=== PATIENT | male | born 2005 | race Caucasian/White ===

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

== ENCOUNTER 2024-09-14 12:55 | Emergency (ER) | payer OTHER, SELFPAY ==
[2024-09-14 13:14] VITALS: BP 145/91; PULSE 88; RESP 14; TEMP 37.1; O2SAT 98; BMI 26.4
--- NOTE | 2024-09-14 13:17 | DI.RAD.S_ITS ---
PROCEDURE: XR CHEST 1V INDICATIONS: chest pain TECHNIQUE: One view of the chest was acquired. COMPARISON: None. FINDINGS: Surgical changes and devices: None. Lungs and pleura: Lungs are clear. No pleural effusions or pneumothorax. Mediastinum: Mediastinal contours appear normal. Heart size is normal. Bones and chest wall: No suspicious bony lesions. Overlying soft tissues appear unremarkable. IMPRESSION: No acute cardiopulmonary abnormality is seen. Dictated by: Tomás Navarrete M.D. on 09/14/2024 at 14:05 Approved by: Tomás Navarrete M.D. on 09/14/2024 at 14:05
--- NOTE | 2024-09-14 13:17 | EKG_ITS ---
[address] [address] Test Date: 2024-09-14 Pat Name: Sanjay Jameson Department: Room: Gender: Male [employer] Worker: EDUARDO : 2005 Requested By: Order Number: [id number] Reading MD: Rui Howard MD Measurements Intervals [place] Rate: 67 P: 41 OR: 142 QRS: 56 QRSD: 106 T: 54 QT: 382 QTc: 403 Interpretive Statements Normal sinus rhythm with sinus arrhythmia Electronically Signed On 09-15-2024 7:36:50 PST by Rui Howard MD
[2024-09-14 13:42] LABS: Add Manual Diff / Slide Review NO; Basophils Absolute Auto 100 /uL (0-100); Basophils Percent Auto 0.6 % (0-2); Eosinophils Absolute Auto 0 /uL (0-450); Hematocrit 44.2 % (41-53); Hemoglobin 15.7 g/dL (13.5-17.5); Lymphocytes Absolute Auto 1400 /uL (1100-4500); Lymphocytes Percent Auto 15.7 % (25-40); Mean Corpuscular HGB Conc 35.5 % (30-36); Mean Corpuscular Hemoglobin 34.7 PG (26-34); Mean Corpuscular Volume 97.5 fL (80-100); Monocytes Absolute Auto 400 /uL (0-900); Monocytes Percent Auto 4.1 % (3-14); Neutrophils Absolute Auto 7100 /uL (1500-7000); Neutrophils Percent Auto 79.6 % (50-75); Platelet Count 220 X10^3/uL (150-400); Red Blood Cell Count 4.53 X10^6/uL (4.5-5.9); Red Cell Distribution Width 12.1 % (11.6-14.8); White Blood Cell Count 8.9 X10^3/uL (4.5-11.0)
[2024-09-14 13:50] LABS: INR 1.2 (0.9-1.3); Prothrombin Time 13.7 SECONDS (9.4-12.5)
[2024-09-14 13:52] LABS: PTT Partial Thromboplastin Tim 31 SECONDS (25.1-36.5)
[2024-09-14 13:55] LABS: Alanine Aminotransferase 27 IU/L (<50); Albumin 5.5 g/dL (3.5-5.0); Albumin Globulin Ratio 1.6 (1.0-2.8); Alkaline Phosphatase 53 U/L (38-126); Aspartate Aminotransferase 30 IU/L (17-59); BUN Creatinine Ratio 10.9 (6-22); Bilirubin Total 1.2 mg/dL (0.2-1.3); Blood Urea Nitrogen 12 mg/dL (9-20); Calcium 10.1 mg/dL (8.4-10.2); Carbon Dioxide 23 mmol/L (22-32); Chloride 103 mmol/L (98-107); Creatine Kinase 80 U/L (55-170); Estimated Glomerular Filt Rate > 60 mL/min (>60); Globulin 3.4 g/dL (1.7-4.1); Glucose 112 mg/dL (70-100); HEMOLYSIS < 15 (0-50); Lipase 71 U/L (23-300); Magnesium 1.7 mg/dL (1.6-2.3); Potassium 3.6 mmol/L (3.4-5.1); Sodium 141 mmol/L (137-145); Total Protein 8.9 g/dL (6.3-8.2)
[2024-09-14 14:06] LABS: NT-proBNP (BNP-Adult 18+) < 20 pg/mL (<125); Troponin I < 0.012 ng/mL (0.01-0.034)
--- NOTE | 2024-09-14 16:08 | ED_ITS ---
HPI - Chest Pain <Jeny Roberst PA-C - Last Filed: 09/14/24 20:24> General Chief Complaint: Chest Pain Stated Complaint: chest pain, nausea, vomitting, fatigued, chills Time Seen by Provider: 09/14/24 16:02 Source: patient Mode of arrival: Ambulatory History of Present Illness HPI narrative: Mr. Edwin Jameson is a pleasant 19-year-old male with a past medical history of appendectomy who presents to the emergency department for abdominal pain, nausea, vomiting, diarrhea, chest pain x 6 days. Patient states he has a history of lactose intolerance and his symptoms 1st started after eating ice cream last Thursday with 3 days of significant persistent diarrhea. States that the diarrhea improved however he then started having epigastric abdominal pain, acid reflux, chest palpitations and has since had decreased appetite and barely ate for the last 2 days due to nausea. Reports that he went to a urgent care and was prescribed medication for acid reflux but has not taken this yet. Also reports that he typically uses Zyn nicotine patches but he stopped using them on Thursday due to his symptoms. He continues to have persistent heart palpitations, umbilical abdominal pain, nausea. Diarrhea has decreased. No fevers but he does have chills. Denies sore throat, shortness of breath, cough, hemoptysis, hormone use, history of blood clot, lower leg pain or swelling. His mother and girlfriend contributes to the history. Related Data Home Medications Medication Instructions Recorded Confirmed multivitamin with minerals-folic tab PO 04/24/21 04/24/21 acid 200 mcg chewable tablet Previous Rx's Medication Instructions Recorded ondansetron 4 mg disintegrating 4 mg PO Q8H PRN nausea and 09/14/24 tablet vomiting #20 tabs Allergies Allergy/AdvReac Type Severity Reaction Status Date / Time No Known Drug Allergies Allergy Verified 09/14/24 13:14 Review of Systems <Jeny Roberts PA-C - Last Filed: 09/14/24 20:24> Review of Systems ROS Unobtainable: All systems reviewed & are unremarkable except as noted in HPI and below Patient History <Jeny Roberts PA-C - Last Filed: 09/14/24 20:24> Medical History Varicose veins of right lower extremity with pain No significant medical problems Surgical History Anesthesia History of appendectomy (~05/2014) Family History Grandfather Hypertension Hyperlipidemia Grandmother Cancer Social History Smoking Status: Never smoker Smoking Status: Never smoker Exam <Jeny Roberts PA-C - Last Filed: 09/14/24 20:24> Narrative Exam Narrative: GENERAL: 19 year old patient appears stated age. Well-developed patient, in no acute distress. HEAD: Atraumatic. Normocephalic. NECK: Trachea midline. Cervical ROM intact. CARDIOVASCULAR: Regular rate and rhythm. RESPIRATORY: ?Nonlabored respirations. ?Speaking in clear, full sentences. ?Clear to auscultation. Breath sounds equal bilaterally. No wheezes, rales, or rhonchi. ? GASTROINTESTINAL: Abdomen soft, nondistended, normal bowel sounds. Slight subjective pain to palpation of periumbilical region with no obvious hernia or abnormality. No rebound or guarding. NEURO: AOx3. ?Clear speech. ?Moves all 4 extremities appropriately. SKIN: No rash or erythema of visible areas Initial Vital Signs Initial Vital Signs: Vital Signs Temperature 98.7 F 09/14/24 13:14 Pulse Rate 88 09/14/24 13:14 Respiratory Rate 14 09/14/24 13:14 Blood Pressure 145/91 H 09/14/24 13:14 Pulse Oximetry 98 09/14/24 13:14 Oxygen Delivery Method Room Air 09/14/24 13:14 <Werner Red MD - Last Filed: 09/16/24 12:45> Initial Vital Signs Initial Vital Signs: Vital Signs Temperature 98.7 F 09/14/24 13:14 Pulse Rate 88 09/14/24 13:14 Respiratory Rate 14 09/14/24 13:14 Blood Pressure 145/91 H 09/14/24 13:14 Pulse Oximetry 98 09/14/24 13:14 Oxygen Delivery Method Room Air 09/14/24 13:14 Scores <Jeny Roberts PA-C - Last Filed: 09/14/24 20:24> HEART Score Heart Score history: Slightly Suspicious Heart Score EKG: Normal Heart Score Age: < 45 years old Heart Score risk factors: 1-2 risk factors Heart Score troponin: < or = to normal limit Heart Score Total: 1 PERC Score Age greater than or equal to 50 years: No Heart rate greater than or equal to 100 bpm: No Room Air O2 Sat less than 95%: No Unilateral leg swelling: No Recent trauma or surgery: No Hemoptysis: No Prior PE or DVT: No Hormone Use: No Total PERC Score: 0 <Werner Red MD - Last Filed: 09/16/24 12:45> HEART Score Heart Score Total: 1 PERC Score Total PERC Score: 0 Course <Jeny Roberts PA-C - Last Filed: 09/14/24 20:24> Orders Ordered: Discontinued Medications Sodium Chloride (Normal Saline 0.9%) 1,000 mls @ 1,000 mls/hr IV BOLUS ONE Stop: 09/14/24 17:30 Last Infusion: 09/14/24 18:02 Dose: Infused Documented By: Admin: 09/14/24 17:05 Dose: 1,000 mls/hr Documented By: RB Ondansetron HCl (Ondansetron 4 Mg/2 Ml Inj) 4 mg IV NOW ONE Stop: 09/14/24 16:32 Last Admin: 09/14/24 17:06 Dose: 4 mg Documented By: RB Pantoprazole Sodium (Pantoprazole 40 Mg Vial) 40 mg IV NOW ONE Stop: 09/14/24 16:32 Last Admin: 09/14/24 17:06 Dose: 40 mg Documented By: RB Vital Signs Vital signs: Vital Signs - 8 hr 09/14/24 13:14 09/14/24 17:43 09/14/24 19:22 Temperature 98.7 F Pulse Rate 88 79 78 Respiratory Rate 14 18 18 Blood Pressure 145/91 H 141/81 H 142/62 H Pulse Oximetry 98 98 99 Oxygen Delivery Method Room Air Room Air Room Air <Werner Red MD - Last Filed: 09/16/24 12:45> Orders Ordered: Discontinued Medications Sodium Chloride (Normal Saline 0.9%) 1,000 mls @ 1,000 mls/hr IV BOLUS ONE Stop: 09/14/24 17:30 Last Infusion: 09/14/24 18:02 Dose: Infused Documented By: Admin: 09/14/24 17:05 Dose: 1,000 mls/hr Documented By: RB Ondansetron HCl (Ondansetron 4 Mg/2 Ml Inj) 4 mg IV NOW ONE Stop: 09/14/24 16:32 Last Admin: 09/14/24 17:06 Dose: 4 mg Documented By: RB Pantoprazole Sodium (Pantoprazole 40 Mg Vial) 40 mg IV NOW ONE Stop: 09/14/24 16:32 Last Admin: 09/14/24 17:06 Dose: 40 mg Documented By: RB Vital Signs Vital signs: Vital Signs - 8 hr 09/14/24 13:14 09/14/24 17:43 09/14/24 19:22 Temperature 98.7 F Pulse Rate 88 79 78 Respiratory Rate 14 18 18 Blood Pressure 145/91 H 141/81 H 142/62 H Pulse Oximetry 98 98 99 Oxygen Delivery Method Room Air Room Air Room Air MDM - Chest Pain <Jeny Roberts PA-C - Last Filed: 09/14/24 20:24> Medical Records Data Attestation: I reviewed the patient's medical records. Medical records narrative: prior varicose veins Lab Data 09/14/24 13:20 09/14/24 13:20 Labs: Lab Results 09/14/24 09/14/24 09/14/24 Range/Units 13:20 16:54 17:10 WBC 8.9 (4.5-11.0) X10^3/uL RBC 4.53 (4.5-5.9) X10^6/uL Hgb 15.7 (13.5-17.5) g/dL Hct 44.2 (41-53) % MCV 97.5 (80-100) fL MCH 34.7 H (26-34) PG MCHC 35.5 (30-36) % RDW 12.1 (11.6-14.8) % Plt Count 220 (150-400) X10^3/uL Neut % (Auto) 79.6 H (50-75) % Lymph % (Auto) 15.7 L (25-40) % [place] % (Auto) 4.1 (3-14) % Eos % (Auto) 0.0 L (2-4) % Baso % (Auto) 0.6 (0-2) % Neut # (Auto) 7100 H (3221-4965) /uL Lymph # (Auto) 1400 (2063-9172) /uL [place] # (Auto) 400 (0-900) /uL Eos # (Auto) 0 (0-450) /uL Baso # (Auto) 100 (0-100) /uL PT 13.7 H (9.4-12.5) SECONDS INR 1.2 (0.9-1.3) APTT 31 (25.1-36.5) SECONDS Sodium 141 (137-145) mmol/L Potassium 3.6 (3.4-5.1) mmol/L Chloride 103 (98-107) mmol/L Carbon Dioxide 23 (22-32) mmol/L BUN 12 (9-20) mg/dL Creatinine 1.10 (0.66-1.25) mg/dL Estimated GFR > 60 (>60) mL/min BUN/Creatinine Ratio 10.9 (6-22) Glucose 112 H (70-100) mg/dL Calcium 10.1 (8.4-10.2) mg/dL Magnesium 1.7 (1.6-2.3) mg/dL Total Bilirubin 1.2 (0.2-1.3) mg/dL AST 30 (17-59) IU/L ALT 27 (<50) IU/L Alkaline Phosphatase 53 (38-126) U/L Total Creatine Kinase 80 (55-170) U/L Troponin I < 0.012 < 0.012 (0.01-0.034) ng/mL NT-Pro-B Natriuret Pep < 20 (<125) pg/mL Total Protein 8.9 H (6.3-8.2) g/dL Albumin 5.5 H (3.5-5.0) g/dL Globulin 3.4 (1.7-4.1) g/dL Albumin/Globulin Ratio 1.6 (1.0-2.8) Lipase 71 (23-300) U/L SARS-CoV-2 (PCR) Negative (Negative) Influenza A (RT-PCR) Flu a negative (NEGATIVE) Influenza B (RT-PCR) Flu b negative (NEGATIVE) RSV (PCR) Negative (Negative) Urine Dip Bedside Urine Glucose Negative Bedside Urine Bilirubin - Negative Bedside Urine Ketone +/- 5 Urine Specific [place] 1.005 Bedside Urine Occult Blood - Negative Bedside Urine pH 7.5 Bedside Urine Protein - Negative Bedside Urine Urobilinogen - Negative Bedside Urine Nitrite - Negative Bedside Urine Leukocytes - Negative Esterase Imaging Data Chest x-ray: Radiologist's Impression: PROCEDURE: CT ABDOMEN PELVIS W CON INDICATIONS: N/V/D/umbilical abd pain; chest pain; hx appendectomy TECHNIQUE: After the administration of intravenous contrast, axial sections acquired from the lung bases to the pubic symphysis. Coronal and sagittal reformats were performed. For radiation dose reduction, the following was used: automated exposure control, adjustment of mA and/or kV according to patient size. COMPARISON: [facility], CT, ABDOMEN/PELVIS WITH CONTRAST, 06/10/2014, 19:15. FINDINGS: Image quality: Diagnostic. Lower Chest: No significant findings. ABDOMEN: Liver: No solid mass. Gallbladder: No wall thickening or calcified stones. Biliary ducts: No biliary dilation. Pancreas: Normal size and morphology without visible ductal dilatation or inflammation. Spleen: Size is within normal limits. Adrenal Glands: No adrenal nodules. Kidneys and Ureters: Symmetric enhancement. No nephrolithiasis or hydronephrosis. No hydroureter. Stomach and Bowel: Surgically absent appendix. Proximal stomach contains ingested material. The distal stomach and small bowel loops are fairly decompressed. Partially decompressed loops of colon. No suspicious colon wall thickening or pericolonic inflammation. Peritoneum: No abnormal intraperitoneal fluid. No free air. Ventral Wall: Tiny fat containing umbilical hernia. Abdominal Nodes: No retroperitoneal or mesenteric adenopathy by size criteria. Vessels: The abdominal aorta, IVC, and portal vein are of normal caliber. PELVIS: Pelvic Organs: Unremarkable. Bladder: Decompressed. No stones. Pelvic Nodes: No enlarged lymph nodes. Miscellaneous: No inguinal hernias are seen. Bones: No aggressive osseous abnormality. IMPRESSION: No CT evidence of acute process. Status post appendectomy. CT scan - abdomen/pelvis: Radiologist's Impression: PROCEDURE: CT ABDOMEN PELVIS W CON INDICATIONS: N/V/D/umbilical abd pain; chest pain; hx appendectomy TECHNIQUE: After the administration of intravenous contrast, axial sections acquired from the lung bases to the pubic symphysis. Coronal and sagittal reformats were performed. For radiation dose reduction, the following was used: automated exposure control, adjustment of mA and/or kV according to patient size. COMPARISON: [facility], CT, ABDOMEN/PELVIS WITH CONTRAST, 06/10/2014, 19:15. FINDINGS: Image quality: Diagnostic. Lower Chest: No significant findings. ABDOMEN: Liver: No solid mass. Gallbladder: No wall thickening or calcified stones. Biliary ducts: No biliary dilation. Pancreas: Normal size and morphology without visible ductal dilatation or inflammation. Spleen: Size is within normal limits. Adrenal Glands: No adrenal nodules. Kidneys and Ureters: Symmetric enhancement. No nephrolithiasis or hydronephrosis. No hydroureter. Stomach and Bowel: Surgically absent appendix. Proximal stomach contains ingested material. The distal stomach and small bowel loops are fairly decompressed. Partially decompressed loops of colon. No suspicious colon wall thickening or pericolonic inflammation. Peritoneum: No abnormal intraperitoneal fluid. No free air. Ventral Wall: Tiny fat containing umbilical hernia. Abdominal Nodes: No retroperitoneal or mesenteric adenopathy by size criteria. Vessels: The abdominal aorta, IVC, and portal vein are of normal caliber. PELVIS: Pelvic Organs: Unremarkable. Bladder: Decompressed. No stones. Pelvic Nodes: No enlarged lymph nodes. Miscellaneous: No inguinal hernias are seen. Bones: No aggressive osseous abnormality. IMPRESSION: No CT evidence of acute process. Status post appendectomy. ECG Data Interpretation: ECG reveals rate of 67, normal sinus rhythm, QTC of 403. MDM Narrative Medical decision making narrative: 19-year-old male with a past medical history of appendectomy who presents to the emergency department for abdominal pain, nausea, vomiting, diarrhea, chest pain x 6 days. Differential diagnosis includes but is not limited to ACS/FL, acid reflux, gastritis, colitis, viral syndrome, gastroenteritis, cholecystitis, pancreatitis, etc. On exam patient is in no acute distress, nontoxic appearing, vital signs appropriate. He has been having multiple symptoms relating to the GI system but also chest pain. Physical exam is overall benign with mild subjective periumbilical tenderness but no rebound or guarding. ECG, labs, chest xr were obtained in triage. After shared decision-making with the patient and his mother, we will proceed with viral swab, GI panel, CT abdomen and pelvis with IV contrast, IV fluids Zofran and Protonix. Labs revealed negative troponin x2. Negative BNP. Normal WBC count 8.9. Normal electrolytes, normal renal function, glucose 112. Total protein and albumin very slightly elevated. Normal lipase 71. Negative viral swab. CT abdomen and pelvis reveals no acute process, does have a tiny fat containing umbilical hernia. Patient feeling much better after ED treatment. Suspect his symptoms are combination of gastroenteritis, acid reflux. GI panel still pending however agreed to discharge patient and will call him tomorrow if panel positive for any pathogens. Patient was previously prescribed famotidine and omeprazole which I recommend he start taking and I will also send him Zofran if needed for nausea. Discussed strict ED return precautions, follow up with PCP. Patient verbalized understanding of all information agreeable with the plan. He is tolerating p.o.. He is stable for discharge home. 8:24pm update: called lab, they do not have gi panel, attempted to contact patient to make him aware however no answer and no voicemail box. <Werner Red MD - Last Filed: 09/16/24 12:45> Lab Data Labs: Lab Results 09/14/24 09/14/24 09/14/24 Range/Units 13:20 16:54 17:10 WBC 8.9 (4.5-11.0) X10^3/uL RBC 4.53 (4.5-5.9) X10^6/uL Hgb 15.7 (13.5-17.5) g/dL Hct 44.2 (41-53) % MCV 97.5 (80-100) fL MCH 34.7 H (26-34) PG MCHC 35.5 (30-36) % RDW 12.1 (11.6-14.8) % Plt Count 220 (150-400) X10^3/uL Neut % (Auto) 79.6 H (50-75) % Lymph % (Auto) 15.7 L (25-40) % [place] % (Auto) 4.1 (3-14) % Eos % (Auto) 0.0 L (2-4) % Baso % (Auto) 0.6 (0-2) % Neut # (Auto) 7100 H (5091-0857) /uL Lymph # (Auto) 1400 (0787-4078) /uL [place] # (Auto) 400 (0-900) /uL Eos # (Auto) 0 (0-450) /uL Baso # (Auto) 100 (0-100) /uL PT 13.7 H (9.4-12.5) SECONDS INR 1.2 (0.9-1.3) APTT 31 (25.1-36.5) SECONDS Sodium 141 (137-145) mmol/L Potassium 3.6 (3.4-5.1) mmol/L Chloride 103 (98-107) mmol/L Carbon Dioxide 23 (22-32) mmol/L BUN 12 (9-20) mg/dL Creatinine 1.10 (0.66-1.25) mg/dL Estimated GFR > 60 (>60) mL/min BUN/Creatinine Ratio 10.9 (6-22) Glucose 112 H (70-100) mg/dL Calcium 10.1 (8.4-10.2) mg/dL Magnesium 1.7 (1.6-2.3) mg/dL Total Bilirubin 1.2 (0.2-1.3) mg/dL AST 30 (17-59) IU/L ALT 27 (<50) IU/L Alkaline Phosphatase 53 (38-126) U/L Total Creatine Kinase 80 (55-170) U/L Troponin I < 0.012 < 0.012 (0.01-0.034) ng/mL NT-Pro-B Natriuret Pep < 20 (<125) pg/mL Total Protein 8.9 H (6.3-8.2) g/dL Albumin 5.5 H (3.5-5.0) g/dL Globulin 3.4 (1.7-4.1) g/dL Albumin/Globulin Ratio 1.6 (1.0-2.8) Lipase 71 (23-300) U/L SARS-CoV-2 (PCR) Negative (Negative) Influenza A (RT-PCR) Flu a negative (NEGATIVE) Influenza B (RT-PCR) Flu b negative (NEGATIVE) RSV (PCR) Negative (Negative) Urine Dip Bedside Urine Glucose Negative Bedside Urine Bilirubin - Negative Bedside Urine Ketone +/- 5 Urine Specific [place] 1.005 Bedside Urine Occult Blood - Negative Bedside Urine pH 7.5 Bedside Urine Protein - Negative Bedside Urine Urobilinogen - Negative Bedside Urine Nitrite - Negative Bedside Urine Leukocytes - Negative Esterase Discharge Plan Departure Patient Disposition: Home Clinical Impression: Gastroenteritis, Palpitations GERD (gastroesophageal reflux disease) Qualifiers: Esophagitis presence: esophagitis presence not specified Qualified Code(s): K 21.9 - Gastro-esophageal reflux disease without esophagitis Instructions: DI for Gastroesophageal Reflux Disease (GERD), DI for Viral Gastroenteritis -- Adult Activity Restrictions/Additional Instructions: Thank you for coming to the emergency department. Today you were evaluated for chest pain, abdominal pain, nausea, vomiting, diarrhea, decreased appetite. Lab work and imaging were performed. Overall your workup was very reassuring that there is no emergent cardiac, pulmonary or abdominal abnormality requiring further hospital workup. Your symptoms are likely related to a combination of factors including gastroenteritis, acid reflux, small fat containing umbilical hernia. I would like you to take both famotidine and omeprazole that were previously prescribed. I have also prescribed you Zofran which is nausea medicine to use if and as needed. I would like for you to follow up with the primary care doctor who may recommend that you follow up with a gastrointestinal doctor for further evaluation of possible underlying gastroesophageal reflux disease or gastritis. Please rest, hydrate, avoid spicy or acidic foods, avoid eating late at night, and return to the emergency department if you develop any new worsening or concerning symptoms. Today we checked a stool test that is not yet resulted. If anything comes back positive, I will call you tonight or tomorrow with the results. Please follow up with your primary care doctor within the next 2-3 days for ER follow-up. (If you do not have a PCP you can call [phone]. ?to schedule an appointment with an [facility] Primary Care Provider) IF YOU DEVELOP ANY NEW OR WORSENING SYMPTOMS, RETURN TO THE ER! Please read the attached instructions, they highlight more specific treatments and interventions for you at home. Thank you for letting me participate in your care, Jeny Roberts PA-C Prescriptions: New ondansetron 4 mg tablet,disintegrating 4 mg PO Q8H PRN (Reason: nausea and vomiting) Qty: 20 0RF No Action multivit with min-folic acid 200 mcg tablet,chewable PO Referrals: Tonny Li MD [Primary Care Provider] - Stand Alone Forms: Patient Portal/API/Survey ED Sign-out <Werner Red MD - Last Filed: 09/16/24 12:45> Cosign ED Attending Cosignature Attestation: I was immediately available in the department for consultation. ?This documentation has been reviewed and I agree with assessment and plan. Supervised by Werner Red MD
--- NOTE | 2024-09-14 16:31 | DI.CT.S_ITS ---
PROCEDURE: CT ABDOMEN PELVIS W CON INDICATIONS: N/V/D/umbilical abd pain; chest pain; hx appendectomy TECHNIQUE: After the administration of intravenous contrast, axial sections acquired from the lung bases to the pubic symphysis. Coronal and sagittal reformats were performed. For radiation dose reduction, the following was used: automated exposure control, adjustment of mA and/or kV according to patient size. COMPARISON: [facility], CT, ABDOMEN/PELVIS WITH CONTRAST, 06/10/2014, 19:15. FINDINGS: Image quality: Diagnostic. Lower Chest: No significant findings. ABDOMEN: Liver: No solid mass. Gallbladder: No wall thickening or calcified stones. Biliary ducts: No biliary dilation. Pancreas: Normal size and morphology without visible ductal dilatation or inflammation. Spleen: Size is within normal limits. Adrenal Glands: No adrenal nodules. Kidneys and Ureters: Symmetric enhancement. No nephrolithiasis or hydronephrosis. No hydroureter. Stomach and Bowel: Surgically absent appendix. Proximal stomach contains ingested material. The distal stomach and small bowel loops are fairly decompressed. Partially decompressed loops of colon. No suspicious colon wall thickening or pericolonic inflammation. Peritoneum: No abnormal intraperitoneal fluid. No free air. Ventral Wall: Tiny fat containing umbilical hernia. Abdominal Nodes: No retroperitoneal or mesenteric adenopathy by size criteria. Vessels: The abdominal aorta, IVC, and portal vein are of normal caliber. PELVIS: Pelvic Organs: Unremarkable. Bladder: Decompressed. No stones. Pelvic Nodes: No enlarged lymph nodes. Miscellaneous: No inguinal hernias are seen. Bones: No aggressive osseous abnormality. IMPRESSION: No CT evidence of acute process. Status post appendectomy. Dictated by: Joy Estrada M.D. on 09/14/2024 at 17:14 Approved by: Joy Estrada M.D. on 09/14/2024 at 17:29
[2024-09-14] MEDS: SODIUM CHLORIDE 0.9% 1,000 ML 1000 ML IV (17:05)
[2024-09-14] MEDS: PANTOPRAZOLE 40 MG VIAL IV (17:06)
[2024-09-14] MEDS: ONDANSETRON 4 MG/2 ML INJ IV (17:06)
[2024-09-14 17:27] LABS: Troponin I < 0.012 ng/mL (0.01-0.034)
[2024-09-14 17:43] VITALS: BP 141/81; PULSE 79; RESP 18; O2SAT 98
[2024-09-14 18:12] LABS: Influenza A - CEPHEID Flu A NEGATIVE (NEGATIVE); Influenza B - CEPHEID Flu B NEGATIVE (NEGATIVE); Respiratory Syncytial Virus Negative (Negative)
[2024-09-14 18:17] LABS: COVID-19 CEPHEID 4-PLEX PCR Negative (Negative)
[2024-09-14 19:22] VITALS: BP 142/62; PULSE 78; RESP 18; O2SAT 99
== END 2024-09-14 19:24 | disposition home or self-care (01) ==
PROVIDERS: Emergency Medicine; Emergency Provider Physician Assistant; PCP Family Medicine
DX: K52.9 Noninfective gastroenteritis and colitis, unspecified (principal); R00.2 Palpitations; K21.9 Gastro-esophageal reflux disease without esophagitis; R11.2 Nausea with vomiting, unspecified; R10.9 Unspecified abdominal pain
CPT/HCPCS: 0241U; 36415; 71045; 74177; 80053; 81003; 82550; 83690; 83735; 83880; 84484; 85025; 85610; 85730; 93005; 96361; 96374; 96375; 99284; J2405; J2470; Q9967

== ENCOUNTER → 2024-12-13 08:58 | Outpatient (CLI) | payer OTHER, SELFPAY ==
[2024-12-13 10:51] LABS: Alanine Aminotransferase 82 IU/L (<50); Albumin 4.6 g/dL (3.5-5.0); Alkaline Phosphatase 56 U/L (38-126); Aspartate Aminotransferase 84 IU/L (17-59); BUN Creatinine Ratio 23.7 (6-22); Bilirubin Total 0.8 mg/dL (0.2-1.3); Blood Urea Nitrogen 22 mg/dL (9-20); Calcium 9.3 mg/dL (8.4-10.2); Carbon Dioxide 27 mmol/L (22-32); Chloride 102 mmol/L (98-107); Cholesterol 176 mg/dL (140-199); Estimated Glomerular Filt Rate > 60 mL/min (>60); Globulin 2.3 g/dL (1.7-4.1); Glucose 90 mg/dL (70-99); HDL Cholesterol 73 mg/dL (40-60); HEMOLYSIS < 15 (0-50); LDL Cholesterol Calculated 83 mg/dL (<100); Potassium 4.1 mmol/L (3.4-5.1); Sodium 138 mmol/L (137-145); Total Protein 6.9 g/dL (6.3-8.2); Triglycerides 99 mg/dL (35-150)
[2024-12-13 11:17] LABS: TSH w/ Reflex to FT4 3.03 uIU/mL (0.47-4.68)
[2024-12-14 04:36] LABS: Apolipoprotein B 69 mg/dL (<90)
[2024-12-15 15:12] LABS: Albumin 4.1 g/dL (2.9-4.4); Alpha-1-Globulin 0.2 g/dL (0.0-0.4); Alpha-2-Globulin 0.6 g/dL (0.4-1.0); Gamma Globulin 0.9 g/dL (0.4-1.8); Globulin Total 2.6 g/dL (2.2-3.9); Protein, Total 6.7 g/dL (6.0-8.5)
== END ==
PROVIDERS: PCP Family Medicine; Referring Provider Family Medicine; Visit Provider Family Medicine
DX: Z00.00 Encounter for general adult medical examination without abnormal findings (principal); K58.9 Irritable bowel syndrome, unspecified; R77.9 Abnormality of plasma protein, unspecified; K21.9 Gastro-esophageal reflux disease without esophagitis
CPT/HCPCS: 36415; 80053; 80061; 82172; 84155; 84156; 84165; 84166; 84443

== ENCOUNTER → 2024-12-29 13:56 | Outpatient (CLI) | payer OTHER, SELFPAY | PROVIDERS: PCP Family Medicine; Referring Provider Family Medicine; Visit Provider Family Medicine | DX: R00.2 Palpitations (principal) | CPT/HCPCS: 93242; 93244 ==